=== PATIENT | male | born 1970 | race Caucasian/White ===

== ENCOUNTER 2019-06-13 21:29 | Emergency (ER) | payer OTHER ==
[2019-06-13 21:35] VITALS: TEMP 98.1
[2019-06-13] MEDS ORDERED: FAMOTIDINE 20 MG/2 ML VIAL IV STA (22:12)
[2019-06-13] MEDS ORDERED: methylPREDNISolone SOD SUCCI 125 MG/2 ML VIAL IV STA (22:12)
--- NOTE | 2019-06-13 22:32 | ED ---
General Adult HPI - General Chief complaint: Recheck/Abnormal Lab/Rx Stated complaint: Facial swelling, sent by Time Seen by Provider: 06/13/19 21:42 Source: patient Mode of arrival: ambulatory Limitations: no limitations - History of Present Illness Initial comments: This patient is a 49-year-old man with history of idiopathic urticaria and history of angioedema going back approximately 7 years. The patient states that yesterday in the evening he had onset of urticaria to his left chest wall. This evening he also noticed that he was started get some lip swelling which she has had before in relation to this. He went to the [facility], where he was given an intramuscular injection of diphenhydramine, 50 mg and then sent here for further evaluation. Patient denies having difficulty breathing or swallowing. He states that he is having burning discomfort associated which is standard when this comes on. Onset/Timin -: days(s) Location: face, chest Radiation: non-radiation Quality: burning Consistency: constant Improves with: none Worsens with: none Associated Symptoms: denies other symptoms Treatments Prior to Arrival: other (Diphenhydramine) - Related Data Home Medications Medication Instructions Recorded Confirmed Doxepin [SINEquan] 25 mg PO HS 06/13/19 06/13/19 Propranolol [Inderal] 20 mg PO BID 06/13/19 06/13/19 Ranitidine HCl [Zantac] 150 mg PO HS 06/13/19 06/13/19 Simvastatin [Zocor] 20 mg PO HS 06/13/19 06/13/19 Previous Rx's Medication Instructions Recorded predniSONE 60 mg PO DAILY #30 tab 06/13/19 Allergies Allergy/AdvReac Type Severity Reaction Status Date / Time No Known Allergies Allergy Verified 06/13/19 22:19 Review of Systems ROS Statement: Those systems with pertinent positive or pertinent negative responses have been documented in the HPI. ROS Other: All systems not noted in ROS Statement are negative. Constitutional: Denies: fever, chills ENT: Denies: throat pain, congestion Respiratory: Denies: cough, dyspnea, wheezes Cardiovascular: Denies: chest pain, palpitations Gastrointestinal: Denies: abdominal pain, nausea, vomiting Skin: Reports: as per HPI, rash Neurological: Denies: headache Past Medical History Past Medical History: Hyperlipidemia, Hypertension Additional Past Medical History / Comment(s): chronic hives History of Any Multi-Drug Resistant Organisms: None Reported Past Surgical History: Appendectomy Additional Past Surgical History / Comment(s): bone marrow donor X2 Past Psychological History: No Psychological Hx Reported, Anxiety Smoking Status: Former smoker Past Alcohol Use History: None Reported Past Drug Use History: None Reported General Exam Limitations: no limitations General appearance: alert, in no apparent distress Head exam: Present: atraumatic, normocephalic Eye exam: Present: normal appearance. Absent: scleral icterus, conjunctival injection ENT exam: Present: mucous membranes moist, other (Patient does have some mild angioedema mainly of the upper lip right-sided greater than left. No pharyngeal swelling. No tongue swelling.) Neck exam: Present: normal inspection, full ROM. Absent: meningismus Respiratory exam: Present: normal lung sounds bilaterally. Absent: respiratory distress, wheezes, rales, rhonchi, stridor Cardiovascular Exam: Present: regular rate, normal rhythm, normal heart sounds. Absent: systolic murmur, diastolic murmur, rubs, gallop GI/Abdominal exam: Present: soft. Absent: tenderness Extremities exam: Present: normal inspection Skin exam: Present: warm, dry, intact, normal color, urticaria (The patient does have a couple of large urticarial wheals to the chest wall.) Course Vital Signs 06/13/19 06/13/19 21:30 23:17 Temperature 98.1 F Pulse Rate 72 77 Respiratory 16 18 Rate Blood Pressure 138/99 139/86 O2 Sat by Pulse 99 97 Oximetry Medical Decision Making - Medical Decision Making Patient is a 49-year-old man with angioedema and urticaria that he states has been coming and going for approximate 7 years. He has seen him immunology he multiple occasions. The patient has had visible improvement here with medications and he is feeling well and would like to go home. We discussed the appropriate return parameters. Disposition Clinical Impression: Angioedema, Urticaria Disposition: HOME SELF-CARE Condition: Good Prescriptions: predniSONE 60 mg PO DAILY #30 tab Is patient prescribed a controlled substance at d/c from ED?: No Referrals: [facility],Clinic [Primary Care Provider] - 1-2 days
[2019-06-13 23:19] VITALS: BP 139/86; PULSE 77; RESP 18
== END 2019-06-14 00:14 | disposition home or self-care (01) ==
LOC: EC 21:29
DX: T78.3XXA Angioneurotic edema, initial encounter (principal); F41.9 Anxiety disorder, unspecified; E78.5 Hyperlipidemia, unspecified; I10 Essential (primary) hypertension; Z79.899 Other long term (current) drug therapy; Z87.891 Personal history of nicotine dependence
CPT/HCPCS: 99283; 96374; 96375; J2930

== ENCOUNTER 2019-06-21 08:45 | Emergency (ER) | payer OTHER ==
[2019-06-21] MEDS ORDERED: EPINEPHrine 1 MG/ML 1 ML AMP IM STA (09:10)
[2019-06-21 09:42] VITALS: TEMP 96.8
[2019-06-21 09:46] LABS: Basophils # (A) 0.1 k/uL (0-0.2); Basophils % (A) 1 %; Eosinophils # (A) 0.2 k/uL (0-0.7); Eosinophils % (A) 2 %; HCT 46.1 % (39.0-53.0); HGB 15.9 gm/dL (13.0-17.5); Lymphocytes # (A) 1.7 k/uL (1.0-4.8); Lymphocytes % (A) 18 %; MCH 31.2 pg (25.0-35.0); MCHC 34.6 g/dL (31.0-37.0); MCV 90.2 fL (80.0-100.0); Mean Platelet Volume 6.6; Monocytes # (A) 0.6 k/uL (0-1.0); Monocytes % (A) 6 %; Neutrophils # (A) 6.7 k/uL (1.3-7.7); Neutrophils % (A) 72 %; Platelet Count 213 k/uL (150-450); RDW 12.2 % (11.5-15.5); WBC 9.4 k/uL (3.8-10.6)
[2019-06-21 09:58] LABS: ALT 28 U/L (21-72); AST 19 U/L (17-59); African American GFR (CKD) >90 (>60 ml/min/1.73 sqM); Albumin 4.3 g/dL (3.5-5.0); Alkaline Phosphatase 69 U/L (38-126); Anion Gap 6 mmol/L; Blood Urea Nitrogen 17 mg/dL (9-20); Calcium 9.8 mg/dL (8.4-10.2); Carbon Dioxide 30 mmol/L (22-30); Chloride 103 mmol/L (98-107); Glucose 108 mg/dL (74-99); Potassium 4.9 mmol/L (3.5-5.1); Sodium 139 mmol/L (137-145); Total Bilirubin 0.8 mg/dL (0.2-1.3)
[2019-06-21] MEDS ORDERED: ACETAMINOPHEN TAB 500 MG TAB PO STA (10:50)
--- NOTE | 2019-06-21 11:04 | ED ---
Allergic Reaction HPI - General Chief complaint: Allergic Reaction Stated complaint: POSS ALLERGIC REACTION, SORE THROAT Time Seen by Provider: 06/21/19 08:59 Source: patient, RN notes reviewed, old records reviewed Mode of arrival: ambulatory Limitations: no limitations - History of Present Illness Initial Comments: Patient is a pleasant 49-year-old male presents emergency department today for hives, throat irritation and allergic reaction. Refer to initial paper charting. - Related Data Home Medications Medication Instructions Recorded Confirmed Doxepin [SINEquan] 25 mg PO HS 06/13/19 06/21/19 Propranolol [Inderal] 20 mg PO BID 06/13/19 06/21/19 Ranitidine HCl [Zantac] 150 mg PO HS 06/13/19 06/21/19 Simvastatin [Zocor] 20 mg PO HS 06/13/19 06/21/19 Previous Rx's Medication Instructions Recorded EPINEPHrine (Auto Inject) [Epipen] 0.3 mg IM ONCE PRN #2 pen 06/21/19 Famotidine [Pepcid] 20 mg PO BID #20 tablet 06/21/19 diphenhydrAMINE [Benadryl] 25 mg PO QID PRN #20 capsule 06/21/19 predniSONE 50 mg PO DAILY #5 tab 06/21/19 Allergies Allergy/AdvReac Type Severity Reaction Status Date / Time No Known Allergies Allergy Verified 06/21/19 09:18 Review of Systems ROS Statement: Those systems with pertinent positive or pertinent negative responses have been documented in the HPI. ROS Other: All systems not noted in ROS Statement are negative. Past Medical History Past Medical History: Hyperlipidemia, Hypertension Additional Past Medical History / Comment(s): chronic hives History of Any Multi-Drug Resistant Organisms: None Reported Past Surgical History: Appendectomy Additional Past Surgical History / Comment(s): bone marrow donor X2 Past Psychological History: No Psychological Hx Reported, Anxiety Smoking Status: Former smoker Past Alcohol Use History: None Reported Past Drug Use History: None Reported General Exam - General Exam Comments Initial Comments: 49-year-old male. No distress. Limitations: no limitations General appearance: alert, in no apparent distress Head exam: Present: atraumatic, normocephalic, normal inspection Eye exam: Present: normal appearance, PERRL, EOMI. Absent: scleral icterus, conjunctival injection, periorbital swelling ENT exam: Present: normal exam, mucous membranes moist Neck exam: Present: normal inspection. Absent: tenderness, meningismus, lymphadenopathy Respiratory exam: Present: normal lung sounds bilaterally. Absent: respiratory distress, wheezes, rales, rhonchi, stridor Cardiovascular Exam: Present: regular rate, normal rhythm, normal heart sounds. Absent: systolic murmur, diastolic murmur, rubs, gallop, clicks GI/Abdominal exam: Present: soft, normal bowel sounds. Absent: distended, tenderness, guarding, rebound, rigid Extremities exam: Present: normal inspection, full ROM, normal capillary refill. Absent: tenderness, pedal edema, joint swelling, calf tenderness Back exam: Present: normal inspection Neurological exam: Present: alert, oriented X3, CN II-XII intact Course Vital Signs 06/21/19 06/21/19 06/21/19 08:49 08:51 09:50 Temperature 97.4 F L 96.8 F L Pulse Rate 55 L 52 L Respiratory 20 16 16 Rate Blood Pressure 166/107 177/111 O2 Sat by Pulse 100 100 Oximetry Medical Decision Making - Medical Decision Making Patient's 49-year-old male presents for ALLERGIC reaction. Evidence of urticaria over his arms. Patient was sent for urgent care after yard he received IM Decadron and Benadryl. He does have some evidence of uvula sw elling. The nasal airway. Vital signs are stable. He is given 0.3 mg of subcu epinephrine, as well as Pepcid at this time. He is monitored in ER. He has no further worsening swelling. I discussed we can put the Patient on steroids and have close follow-up with primary care doctor and referral and information aide she's had this happen frequently in the past. He's had a full ALLERGY testing with no significant occlusions. Patient is agreeable to treatment plan will comply. Return parameters were discussed. - Lab Data Result diagrams: 06/21/19 09:31 06/21/19 09:31 Lab Results 06/21/19 06/21/19 Range/Units 09:31 09:31 WBC 9.4 (3.8-10.6) k/uL RBC 5.10 (4.30-5.90) m/uL Hgb 15.9 (13.0-17.5) gm/dL Hct 46.1 (39.0-53.0) % MCV 90.2 (80.0-100.0) fL MCH 31.2 (25.0-35.0) pg MCHC 34.6 (31.0-37.0) g/dL RDW 12.2 (11.5-15.5) % Plt Count 213 (150-450) k/uL Neutrophils % 72 % Lymphocytes % 18 % Monocytes % 6 % Eosinophils % 2 % Basophils % 1 % Neutrophils # 6.7 (1.3-7.7) k/uL Lymphocytes # 1.7 (1.0-4.8) k/uL Monocytes # 0.6 (0-1.0) k/uL Eosinophils # 0.2 (0-0.7) k/uL Basophils # 0.1 (0-0.2) k/uL Sodium 139 (137-145) mmol/L Potassium 4.9 (3.5-5.1) mmol/L Chloride 103 (98-107) mmol/L Carbon Dioxide 30 (22-30) mmol/L Anion Gap 6 mmol/L BUN 17 (9-20) mg/dL Creatinine 0.92 (0.66-1.25) mg/dL Est GFR (CKD-EPI)AfAm >90 (>60 ml/min/1.73 sqM) Est GFR (CKD-EPI)NonAf >90 (>60 ml/min/1.73 sqM) Glucose 108 H (74-99) mg/dL Calcium 9.8 (8.4-10.2) mg/dL Total Bilirubin 0.8 (0.2-1.3) mg/dL AST 19 (17-59) U/L ALT 28 (21-72) U/L Alkaline Phosphatase 69 (38-126) U/L Total Protein 7.0 (6.3-8.2) g/dL Albumin 4.3 (3.5-5.0) g/dL 06/21/19 11:04 Digit performed at 927 shows sinus bradycardia, otherwise normal EKG. Ventricular rate of 54 bpm. MD interval is 146 ms. QS duration 94 ms. QTQTC's were 42/381 ms. Disposition Clinical Impression: Uvular edema, Hives Disposition: HOME SELF-CARE Condition: Good Instructions (If sedation given, give patient instructions): Urticaria (ED), Angioedema (ED) Additional Instructions: Patient advised to continue the use of steroids for the next 5 days and an histamines as discussed. Recommended prompt follow-up with primary care doctor in email production specialist. Return to the emergency department if any alarming signs or symptoms occur. Prescriptions: diphenhydrAMINE [Benadryl] 25 mg PO QID PRN #20 capsule PRN Reason: Itching EPINEPHrine (Auto Inject) [Epipen] 0.3 mg IM ONCE PRN #2 pen PRN Reason: Anaphylaxis Famotidine [Pepcid] 20 mg PO BID #20 tablet predniSONE 50 mg PO DAILY #5 tab Is patient prescribed a controlled substance at d/c from ED?: No Referrals: [facility],Clinic [Primary Care Provider] - 1-2 days Time of Disposition: 11:32
[2019-06-21 12:31] VITALS: BP 150/82; PULSE 70; RESP 18
== END 2019-06-21 12:56 | disposition home or self-care (01) ==
LOC: EC 08:45
DX: L50.9 Urticaria, unspecified (principal); K13.79 Other lesions of oral mucosa; I10 Essential (primary) hypertension; E78.5 Hyperlipidemia, unspecified; Z79.899 Other long term (current) drug therapy; Z87.891 Personal history of nicotine dependence
CPT/HCPCS: 36415; 80053; 85025; 99284

== ENCOUNTER 2019-08-23 03:09 | Emergency (ER) | payer OTHER ==
[2019-08-23 03:21] VITALS: TEMP 98.1
[2019-08-23] MEDS ORDERED: FAMOTIDINE 20 MG/2 ML VIAL IV STA (03:23)
[2019-08-23] MEDS ORDERED: diphenhydrAMINE 50 MG/ML 1 ML VIAL IVP STA (03:23)
[2019-08-23] MEDS ORDERED: methylPREDNISolone SOD SUCCI 125 MG/2 ML VIAL IV STA (03:23)
--- NOTE | 2019-08-23 04:37 | ED ---
Allergic Reaction HPI - General Chief complaint: Allergic Reaction Stated complaint: Allergic Reaction Time Seen by Provider: 08/23/19 03:16 Source: patient Mode of arrival: ambulatory Limitations: no limitations - History of Present Illness Initial Comments: This patient is a 48-year-old man who reportedly has history of chronic urticaria, states that tonight he started having feeling like getting a little more difficult for him to swallow. He states that he has had this previously. He has had ALLERGY testing by the fur farmer and they have not identified any factors. The patient had recently been started on doxepin and then had the dose doubled day ago. After eating dinner tonight he noticed that he was getting the onset of the symptoms. Patient denies cough, wheezing, or dyspnea. He is not having urticaria tonight. He did try using the EpiPen states that he does feel a little better. MD Complaint: allergic reaction -: hour(s) Exposure: unknown Symptoms: difficulty swallowing Severity: mild Treatment Prior to Arrival: epinephrine Previous Allergy History: prior ED visit(s) - Related Data Home Medications Medication Instructions Recorded Confirmed Doxepin [SINEquan] 25 mg PO HS 06/13/19 08/23/19 Propranolol [Inderal] 20 mg PO BID 06/13/19 08/23/19 Simvastatin [Zocor] 20 mg PO HS 06/13/19 08/23/19 Previous Rx's Medication Instructions Recorded EPINEPHrine (Auto Inject) [Epipen] 0.3 mg IM ONCE PRN #2 pen 06/21/19 Famotidine [Pepcid] 20 mg PO BID #20 tablet 06/21/19 diphenhydrAMINE [Benadryl] 25 mg PO QID PRN #20 capsule 06/21/19 predniSONE 50 mg PO DAILY #5 tab 06/21/19 predniSONE 20 mg PO BID #8 tab 08/23/19 Allergies Allergy/AdvReac Type Severity Reaction Status Date / Time No Known Allergies Allergy Verified 06/21/19 09:18 Review of Systems ROS Statement: Those systems with pertinent positive or pertinent negative responses have been documented in the HPI. ROS Other: All systems not noted in ROS Statement are negative. Constitutional: Denies: fever, chills ENT: Reports: as per HPI, throat pain. Denies: congestion Respiratory: Denies: cough, dyspnea, wheezes Cardiovascular: Denies: chest pain Gastrointestinal: Denies: abdominal pain, nausea, vomiting, diarrhea Skin: Reports: pruritus. Denies: rash Neurological: Denies: headache, weakness Past Medical History Past Medical History: Hyperlipidemia, Hypertension Additional Past Medical History / Comment(s): chronic hives History of Any Multi-Drug Resistant Organisms: None Reported Past Surgical History: Appendectomy Additional Past Surgical History / Comment(s): bone marrow donor X2 Past Psychological History: No Psychological Hx Reported, Anxiety Smoking Status: Former smoker Past Alcohol Use History: None Reported Past Drug Use History: None Reported General Exam Limitations: no limitations General appearance: alert, in no apparent distress Head exam: Present: atraumatic, normocephalic Eye exam: Present: normal appearance. Absent: scleral icterus, conjunctival injection, periorbital swelling ENT exam: Present: normal oropharynx, mucous membranes moist Respiratory exam: Present: normal lung sounds bilaterally. Absent: respiratory distress, wheezes, rales, rhonchi, stridor Cardiovascular Exam: Present: regular rate, normal rhythm, normal heart sounds. Absent: systolic murmur, diastolic murmur, rubs, gallop GI/Abdominal exam: Present: soft. Absent: tenderness, guarding, rebound Neurological exam: Present: alert Skin exam: Present: warm, dry, intact, normal color. Absent: rash Course Vital Signs 08/23/19 08/23/19 03:18 04:25 Temperature 98.1 F Pulse Rate 63 63 Respiratory 24 19 Rate Blood Pressure 179/108 148/103 O2 Sat by Pulse 98 100 Oximetry Disposition Clinical Impression: Allergic reaction Disposition: HOME SELF-CARE Condition: Good Instructions (If sedation given, give patient instructions): General Allergic Reaction (ED) Prescriptions: predniSONE 20 mg PO BID #8 tab Is patient prescribed a controlled substance at d/c from ED?: No Referrals: [facility],Clinic [Primary Care Provider] - 1-2 days
[2019-08-23 04:55] VITALS: BP 131/92; PULSE 60; RESP 18
== END 2019-08-23 04:57 | disposition home or self-care (01) ==
LOC: EC 03:09
DX: T78.40XA Allergy, unspecified, initial encounter (principal); E78.5 Hyperlipidemia, unspecified; I10 Essential (primary) hypertension; Z87.891 Personal history of nicotine dependence
CPT/HCPCS: 96374; 96375; 99283